=== PATIENT | male | born 1985 | race Caucasian/White ===

== ENCOUNTER 2018-05-12 16:27 | Inpatient (IN) | payer SELFPAY ==
[~2018-05-12] VITALS: Ht 193 cm; Wt 92.6 kg
[2018-05-12] MEDS ORDERED: SODIUM CHLORIDE 0.9% 1000ML 1,000 ML IV STA (16:42)
[2018-05-12 18:28] LABS: BASOPHILS % 0.4 % (0.0-1.0); EOSINOPHILS % 0.4 % (0.0-6.0); HEMATOCRIT 41.3 % (38.2-49.6); HEMOGLOBIN 14.7 g/dL (14.0-18.0); LYMPHOCYTES # (AUTO) 0.9 (1.0-3.2); LYMPHOCYTES % 11.8 % (18.0-39.1); MEAN CORPUSCULAR HEMOGLOBIN 31.6 pg (28-32); MEAN CORPUSCULAR HGB CONC 35.6 g/dL (31-35); MEAN CORPUSCULAR VOLUME 88.8 fL (81-99); MONOCYTES # (AUTO) 0.7 (0.2-0.8); MONOCYTES % 9.6 % (4.4-11.3); NEUTROPHILS % 76.9 % (38.7-80.0); PLATELET COUNT 192 x10e3/uL (140-360); RED BLOOD COUNT 4.65 x10e6/uL (4.3-5.7); RED CELL DISTRIBUTION WIDTH 12.2 % (11.7-14.4)
[2018-05-12 18:33] LABS: CLARITY,URINE CLEAR (CLEAR); COLOR,URINE YELLOW (YELLOW); LEUKOCYTE ESTERASE ,URINE NEGATIVE (NEGATIVE); NITRITE,URINE NEGATIVE (NEGATIVE)
[2018-05-12 18:34] LABS: BILIRUBIN,URINE NEGATIVE (NEGATIVE); KETONES,URINE NEGATIVE (NEGATIVE); PROTEIN,URINE DIPSTICK NEGATIVE (NEGATIVE); URINE UROBILINOGEN 0.2 mg/dL (0.2 - 1)
[2018-05-12 18:44] LABS: ALANINE AMINOTRANSFERASE 36 IU/L (0-55); ALBUMIN/GLOBULIN RATIO 0.8 (0.8-2.0); ALKALINE PHOSPHATASE 148 IU/L (40-150); ANION GAP 14.3 mmol/L (8-16); BLOOD UREA NITROGEN 8 mg/dL (7-26); BUN/CREATININE RATIO 6 (6-25); CARBON DIOXIDE 25 mmol/L (22-29); CHLORIDE 93 mmol/L (98-107); CREATININE, SERUM 1.31 mg/dL (0.72-1.25); EST GLOMERULAR FILTRATION RATE > 60 ML/MIN (60-); GLUCOSE 94 mg/dL (74-118); LIPASE 211 U/L (8-78); POTASSIUM 4.3 mmol/L (3.5-5.1); SODIUM 128 mmol/L (136-145)
[2018-05-12] MEDS ORDERED: ACETAMINOPHEN 1000 MG/100 ML IV STA (19:08)
[2018-05-12] MEDS ORDERED: DIATRIZOATE MEGL/DIATRIZOA SOD 30 ML BTL PO ONE (19:12)
[2018-05-12] MEDS ORDERED: ACETAMINOPHEN 325 MG TAB PO ONE (19:30)
[2018-05-12] MEDS ORDERED: MULTIVITAMINS- 12 INJECTION 10 ML, FOLIC ACID MDV 5 MG, THIAMINE HCL INJ 100 MG in SODI... IV ONE (19:45)
[2018-05-12] MEDS ORDERED: CEFTRIAXONE SOD 1 GM/NS 50 ML 50 ML IV ONE (19:45)
--- NOTE | 2018-05-12 21:38 | Diagnostic Imaging Report ---
EXAM: CT ABDOMEN/PELVIS W DATE: 05/12/2018 6:58 PM INDICATION: Abdominal pain COMPARISON: None TECHNIQUE: The abdomen and pelvis were scanned using a multidetector helical scanner. Coronal and sagittal reformations were obtained. CT low dose techniques were utilized, as applicable. IV Contrast: 100 ml Isovue 300/370 FINDINGS: LOWER THORAX: Trace effusions with bibasilar atelectasis. LIVER/BILIARY: Cirrhotic appearing liver with heterogeneous enhancement. No discrete mass. No ductal dilatation. GALLBLADDER: Contracted with trace pericholecystic fluid, nonspecific. SPLEEN: Splenomegaly. 17 cm craniocaudal dimension. PANCREAS: Unremarkable ADRENALS: No nodules KIDNEYS: No suspicious renal masses. No hydronephrosis. GI TRACT: No wall thickening or evidence of obstruction. Normal appendix. VESSELS: Central vessels are patent. Recanalized paraumbilical vein. PERITONEUM/RETROPERITONEUM: Mild free fluid is present. LYMPH NODES: Mildly enlarged deyanira hepatis nodes and prominent retroperitoneal nodes, presumably reactive. REPRODUCTIVE ORGANS/BLADDER: Unremarkable SOFT TISSUES: Fat-containing left inguinal hernia BONES: No suspicious bone lesions. IMPRESSION: Heterogeneous cirrhotic appearing liver with evidence of portal hypertension including splenomegaly and mild ascites. Signed by: Dr Kizzy Corey MD on 05/12/2018 9:35 PM
[2018-05-12] MEDS ORDERED: [UNRECOGNIZED DRUG - OTHER] PEG (22:35)
[2018-05-12] MEDS ORDERED: ZOFRAN4 MG PO (22:35)
[2018-05-12] MEDS ORDERED: FAMOTIDINE20 MG PO (22:35)
--- OUTSIDE RECORDS SUMMARY | 2018-05-12 22:42 | XMS REPORT ---
Author [facility] Address Unknown Phone Unavailable Care Team Providers Care Hospice/Home Health Aide Name Role Phone Tee PATEL Unavailable Unavailable Problems This patient has no known problems. Allergies, Adverse Reactions, Alerts This patient has no known allergies or adverse reactions. Medications This patient has no known medications. Results Test Description Test Time Test Comments Text Results Atomic Results Result Comments CT ABDOMEN/PELVIS W 2018-05-12 21:29:00 [place] [address] Patient Name: GLADIS CADENA MR #: [id number] : 1985 Age/Sex: 32/M Req #: [id number] Adm Physician: Ordered by: NI PATEL MD Report #: [id number] Location: ER Room/Bed: Procedure: [id number] CT/CT ABDOMEN/PELVIS W Exam Date: 05/12/18 Exam Time: 2033 REPORT STATUS: Signed EXAM: CT ABDOMEN/PELVIS W DATE: 05/12/2018 6:58 PM INDICATION: Abdominal pain COMPARISON: None TECHNIQUE: The abdomen and pelvis were scanned using a multidetector helical scanner. Coronal and sagittal reformations were obtained. CT low dose techniques were utilized, as applicable. IV Contrast: 100 ml Isovue 300/370 FINDINGS: LOWER THORAX: Trace effusions with bibasilar atelectasis. LIVER/BILIARY: Cirrhotic appearing liver with heterogeneous enhancement. No discrete mass. No ductal dilatation. GALLBLADDER: Contracted with trace pericholecystic fluid, nonspecific. SPLEEN: Splenomegaly. 17 cm craniocaudal dimension. PANCREAS: Unremarkable ADRENALS: No nodules KIDNEYS: No suspicious renal masses. No hydronephrosis. GI TRACT: No wall thickening or evidence of obstruction. Normal appendix. VESSELS: Central vessels are patent. Recanalized paraumbilical vein. PERITONEUM/RETROPERITONEUM: Mild free fluid is present. LYMPH NODES: Mildly enlarged deyanira hepatis nodes and prominent retroperitoneal nodes, presumably reactive. REPRODUCTIVE ORGANS/BLADDER: Unremarkable SOFT TISSUES: Fat-containing left inguinal hernia BONES: No suspicious bone lesions. IMPRESSION: Heterogeneous cirrhotic appearing liver with evidence of portal hypertension including splenomegaly and mild ascites. Signed by: Dr Eduarda Corey MD on 05/12/2018 9:35 PM Dictated By: EDUARDA COREY MD 34 Transcribed By: MORIS on 05/12/182134 COPY TO: NI PATEL MD
[2018-05-12] MEDS ORDERED: ONDANSETRON HCL INJ 2MG/ML 2ML 2 MG/ML VIAL IV PRN (22:45)
[2018-05-12] MEDS ORDERED: SODIUM CHLORIDE 0.9% 50ML 50 ML ONE (22:51)
[2018-05-12] MEDS ORDERED: IOPAMIDOL 370 MG/ML 200 ML INFUS..BTL INJ ONE (22:52)
[2018-05-12] MEDS ORDERED: IBUPROFEN 600 MG TAB PO ONE (23:30)
[2018-05-12] MEDS: CHLORDIAZEPOXIDE HCL 25 MG CAP PO SCH (23:45)
[2018-05-13] VITALS (9 sets, daily range): BP systolic 112–133; BP diastolic 71–81
[2018-05-13] MEDS: SODIUM CHLORIDE 0.9% 1000ML 1,000 ML IV SCH ×4 (02:19→20:25)
[2018-05-13 05:01] LABS: BASOPHILS % 0.4 % (0.0-1.0); EOSINOPHILS % 0.2 % (0.0-6.0); HEMATOCRIT 38.4 % (38.2-49.6); HEMOGLOBIN 13.4 g/dL (14.0-18.0); LYMPHOCYTES # (AUTO) 0.8 (1.0-3.2); LYMPHOCYTES % 8.3 % (18.0-39.1); MEAN CORPUSCULAR HEMOGLOBIN 31.1 pg (28-32); MEAN CORPUSCULAR HGB CONC 34.9 g/dL (31-35); MEAN CORPUSCULAR VOLUME 89.1 fL (81-99); MONOCYTES # (AUTO) 0.7 (0.2-0.8); NEUTROPHILS # (AUTO) 8.4 (2.1-6.9); NEUTROPHILS % 83.2 % (38.7-80.0); PLATELET COUNT 162 x10e3/uL (140-360); RED BLOOD COUNT 4.31 x10e6/uL (4.3-5.7); RED CELL DISTRIBUTION WIDTH 12.2 % (11.7-14.4)
[2018-05-13 05:27] LABS: ALANINE AMINOTRANSFERASE 30 IU/L (0-55); ALBUMIN 2.4 g/dL (3.5-5.0); ALBUMIN/GLOBULIN RATIO 0.8 (0.8-2.0); ALKALINE PHOSPHATASE 122 IU/L (40-150); AMYLASE 128 U/L (25-125); ANION GAP 12.9 mmol/L (8-16); BLOOD UREA NITROGEN 7 mg/dL (7-26); BUN/CREATININE RATIO 7 (6-25); CALCIUM 8.2 mg/dL (8.4-10.2); CARBON DIOXIDE 21 mmol/L (22-29); CHLORIDE 101 mmol/L (98-107); CREATININE, SERUM 1.07 mg/dL (0.72-1.25); EST GLOMERULAR FILTRATION RATE > 60 ML/MIN (60-); GLUCOSE 91 mg/dL (74-118); LIPASE 121 U/L (8-78); POTASSIUM 3.9 mmol/L (3.5-5.1); SODIUM 131 mmol/L (136-145)
[2018-05-13] MEDS: CHLORDIAZEPOXIDE HCL 25 MG CAP PO SCH ×3 (05:54→17:01)
[2018-05-13 08:12] LABS: BAND NEUTROPHILS % (MANUAL) 3 %; LYMPHOCYTES % (MANUAL) 8 % (19-48); METAMYELOCYTES % (MANUAL) 1 % (0-0); MONOCYTES % (MANUAL) 6 % (3.4-9.0); NEUTROPHILS % (MANUAL) 82 % (40-74); PLATELET ESTIMATE ADEQUATE; PLATELET MORPHOLOGY COMMENT FEW LARGE; RBC MORPHOLOGY COMMENT NORMAL
[2018-05-13 08:13] LABS: ANISOCYTOSIS SLIGHT; HYPOCHROMASIA MODERATE
[2018-05-13] MEDS: CIPROFLOXACIN 500 MG TAB PO SCH ×2 (09:37→21:13)
[2018-05-13] MEDS: THIAMINE HCL INJ 100 MG/ML 2ML VIAL IM NR ×2 (09:43→10:55)
--- NOTE | 2018-05-13 12:06 | History and Physical ---
Patient admitted through the emergency room. Unfortunate 32-year-old gentleman admitted with abdominal pain and diarrhea of 1 week's duration. Green, loose stool. Ate an old dinner which he bought at [employer]. No surgical history. FAMILY HISTORY: Noncontributory. SOCIAL HISTORY: dress fitter. Born in [place]. Smoked half a pack a day. Drinks 12 beers a day. Weight loss of 8 pounds since his illness began a week ago. Profuse diarrhea. REVIEW OF SYSTEMS: Otherwise noncontributory. PHYSICAL EXAMINATION VITAL SIGNS: Temperature 100.4, pulse 97, respirations 20, blood pressure 127/80. HEAD: Normocephalic, atraumatic. EYES: The extraocular movements are intact. LUNGS: Clear. HEART: Regular rhythm. ABDOMEN: Nontender. EXTREMITIES: Not edematous. CT reveals evidence of cirrhosis. IMPRESSION: Infectious diarrhea. Will begin quinolone therapy, IV fluids. Cigarette smoking cessation and alcohol cessation was discussed. Slightly elevated lipase. No evidence of clinical pancreatitis. Job#: [id number] MARIE
--- NOTE | 2018-05-13 12:14 | Diagnostic Imaging Report ---
EXAM: Right upper quadrant abdominal ultrasound INDICATION: Pancreatitis, abdominal pain. COMPARISON: CT Abdomen/Pelvis with contrast 05/12/2018. TECHNIQUE: Transverse and longitudinal images of the right upper quadrant abdomen were obtained FINDINGS: Liver: Size: 19.3 cm in the right midclavicular line. Appearance: Increased echogenicity with somewhat nodular contour. Somewhat geographic area of relatively hypoechoic liver centrally may represent an area of fatty sparing. Mass: No focal masses Gallbladder: No evidence of distention, pericholecystic fluid, wall thickening, stone, or reported sonographic River's sign. Gallbladder wall measures 0.3 cm Bile Ducts: Intrahepatic Ducts: No dilatation Extrahepatic Ducts: Common bile duct measures 0.4 cm, no dilatation Pancreas: Visualized portions of the pancreatic head, neck and proximal body are normal. Kidney: The right kidney measures 12.7 cm without evidence of hydronephrosis or stone. Vessels: Aorta: Visualized portions are normal Inferior Vena Cava: Visualized portions are normal Main Portal Vein: 1.4 cm, normal size with hepatopetal flow. Free Fluid: No evidence of ascites. IMPRESSION: Cirrhotic morphology to the liver. Hepatomegaly and hepatic steatosis. Somewhat geographic area of relatively hypoechoic liver centrally may represent an area of fatty sparing. No definite mass is visualized. No sonographic evidence of cholecystitis. Partially visualized pancreas appears unremarkable on ultrasound. Signed by: Dr. Davide Bass MD on 05/13/2018 12:11 PM
--- NOTE | 2018-05-13 13:44 | Consultation ---
DATE OF CONSULTATION: GASTROENTEROLOGY CONSULTATION REFERRING PHYSICIAN: Dr. Hayes REASON FOR CONSULTATION: Pancreatitis. HISTORY OF PRESENT ILLNESS: Mr. Hodges is a 32-year-old man with a history of alcohol abuse, who has no past medical history. Does not regularly see a doctor as an outpatient. He became ill last Thursday around 5 p.m. Associated with nausea, dry heaving and vomiting about 3 times. There was no hematemesis, coffee-ground emesis, melena, or hematochezia. He also got diarrhea at this time. He felt like he had some kind of virus or stomach flu. Pain is epigastric and central abdomen, nonradiating. Currently, very mild, but up to 4/10 previously. Worse with trying to eat anything, including soups. He had no sick contacts or identifiable food exposures. He drinks up to a 12-pack a day of tall boys, but had not recently increased his alcohol consumption. He was noted to have elevated amylase and lipase, and a CT scan is significant for heterogeneous cirrhotic appearing liver with portal hypertension, splenomegaly and mild ascites. The pancreas was unremarkable. PAST MEDICAL HISTORY: None. SURGICAL HISTORY: None. FAMILY HISTORY: No liver disease or other significant issues. REVIEW OF SYSTEMS: A 12-system review is positive for that mentioned in HPI, otherwise unremarkable. PHYSICAL EXAMINATION GENERAL: He is calm, alert, pleasant, and oriented. In no acute distress. HEENT: Pupils equal, round and reactive to light. NECK: Supple. LUNGS: Clear. CARDIOVASCULAR: S1 and S2. ABDOMEN: Soft. He is tender in the central and epigastric region. No regarding or mass. EXTREMITIES: No clubbing, cyanosis or edema. PSYCH: Calm and cooperative. NEUROLOGIC: Nonfocal. HEM/ONC: No bruising or adenopathy. Electronic health records reviewed for laboratory and radiologic studies, as well as history. ASSESSMENT 1. Acute pancreatitis, likely alcohol: Rule out biliary. There were no stones in his gallbladder on computerized tomography. However, will get ultrasound. 2. Portal hypertension. 3. Alcohol abuse. 4. Diarrhea: Could be from an acute gastroenteritis, which set him over the top. Could be related to malabsorption. At the current time, agree with stool culture. Will get an ultrasound to re-evaluate the gallbladder. He is more sensitive for cholelithiasis. Will avoid NSAIDs. He will need to avoid shellfish. He will need complete cessation of alcohol. He will need to follow up on an outpatient basis routinely at least every 6 months for screening for liver cancer. Discussed all of this with him. Will need to check him for viral hepatitis C and B, as well as for A. Thank you very much for asking us to see Mr. Hodges. Any questions or concerns please do not hesitate to contact me. Job#: [id number] ROMERO
[2018-05-13] MEDS: ACETAMINOPHEN 325 MG TAB PO PRN (15:53)
--- NOTE | 2018-05-13 20:31 | Diagnostic Imaging Report ---
EXAM: XR CHEST 2 VIEWS DATE: 05/13/2018 3:43 PM INDICATION: Fever COMPARISON: None FINDINGS: Lines and Tubes: None Heart and Mediastinum: No acute cardiomediastinal findings. Lungs and Pleura: Minimal opacities lung bases, most notably on the left. Bones and Soft Tissues: No acute findings. IMPRESSION: 1. Probable left lower lobe pneumonia. Signed by: Dr. Jonah Hair MD on 05/13/2018 8:27 PM
[2018-05-13] MEDS: CEFTRIAXONE SOD 1 GM/NS 50 ML 50 ML IV SCH (20:55)
[2018-05-14] MEDS: CHLORDIAZEPOXIDE HCL 25 MG CAP PO SCH ×4 (00:18→17:34)
[2018-05-14] MEDS: SODIUM CHLORIDE 0.9% 1000ML 1,000 ML IV SCH ×2 (05:08→13:51)
[2018-05-14 05:55] VITALS: BP 128/87
[2018-05-14 06:03] LABS: BASOPHILS % 0.4 % (0.0-1.0); EOSINOPHILS # (AUTO) 0.2 (0.0-0.4); EOSINOPHILS % 1.9 % (0.0-6.0); HEMATOCRIT 34.6 % (38.2-49.6); HEMOGLOBIN 12.5 g/dL (14.0-18.0); LYMPHOCYTES # (AUTO) 1.3 (1.0-3.2); LYMPHOCYTES % 15.8 % (18.0-39.1); MEAN CORPUSCULAR HEMOGLOBIN 31.3 pg (28-32); MEAN CORPUSCULAR HGB CONC 36.1 g/dL (31-35); MEAN CORPUSCULAR VOLUME 86.5 fL (81-99); MONOCYTES # (AUTO) 0.6 (0.2-0.8); MONOCYTES % 7.2 % (4.4-11.3); NEUTROPHILS # (AUTO) 5.9 (2.1-6.9); NEUTROPHILS % 73.2 % (38.7-80.0); PLATELET COUNT 195 x10e3/uL (140-360); RED CELL DISTRIBUTION WIDTH 12.5 % (11.7-14.4)
[2018-05-14 06:31] LABS: ANION GAP 13.1 mmol/L (8-16); BLOOD UREA NITROGEN 9 mg/dL (7-26); BUN/CREATININE RATIO 10 (6-25); CALCIUM 8.2 mg/dL (8.4-10.2); CARBON DIOXIDE 22 mmol/L (22-29); CHLORIDE 104 mmol/L (98-107); CREATININE, SERUM 0.92 mg/dL (0.72-1.25); EST GLOMERULAR FILTRATION RATE > 60 ML/MIN (60-); GLUCOSE 102 mg/dL (74-118); POTASSIUM 4.1 mmol/L (3.5-5.1); SODIUM 135 mmol/L (136-145)
[2018-05-14 08:17] VITALS: BP 120/84
[2018-05-14 08:30] VITALS: BP 120/84
[2018-05-14] MEDS ORDERED: DICYCLOMINE HCL 20 MG TAB PO PRN (12:00)
[2018-05-14 12:09] VITALS: BP 122/83
[2018-05-14] MEDS: LEVOFLOXACIN 500MG/D5W 100ML 100 ML IV SCH (13:51)
[2018-05-14 15:54] VITALS: BP 129/83
[2018-05-14 19:29] VITALS: BP 138/83
[2018-05-14] MEDS: CEFTRIAXONE SOD 1 GM/NS 50 ML 50 ML IV SCH (20:09)
[2018-05-15] VITALS (7 sets, daily range): BP systolic 132–148; BP diastolic 66–98
[2018-05-15] MEDS: ACETAMINOPHEN 325 MG TAB PO PRN (00:09)
[2018-05-15] MEDS: CHLORDIAZEPOXIDE HCL 25 MG CAP PO SCH ×3 (00:09→12:11)
[2018-05-15] MEDS: SODIUM CHLORIDE 0.9% 1000ML 1,000 ML IV SCH (02:15)
[2018-05-15 05:42] LABS: BASOPHILS % 0.3 % (0.0-1.0); EOSINOPHILS # (AUTO) 0.2 (0.0-0.4); EOSINOPHILS % 3.3 % (0.0-6.0); HEMATOCRIT 34.2 % (38.2-49.6); HEMOGLOBIN 12.5 g/dL (14.0-18.0); LYMPHOCYTES # (AUTO) 1.6 (1.0-3.2); LYMPHOCYTES % 22.5 % (18.0-39.1); MEAN CORPUSCULAR HEMOGLOBIN 32.5 pg (28-32); MEAN CORPUSCULAR HGB CONC 36.5 g/dL (31-35); MEAN CORPUSCULAR VOLUME 88.8 fL (81-99); MONOCYTES # (AUTO) 0.5 (0.2-0.8); MONOCYTES % 7.2 % (4.4-11.3); NEUTROPHILS # (AUTO) 4.5 (2.1-6.9); PLATELET COUNT 238 x10e3/uL (140-360); RED BLOOD COUNT 3.85 x10e6/uL (4.3-5.7); RED CELL DISTRIBUTION WIDTH 12.8 % (11.7-14.4)
[2018-05-15 05:59] LABS: ANION GAP 13.3 mmol/L (8-16); BLOOD UREA NITROGEN 9 mg/dL (7-26); BUN/CREATININE RATIO 9 (6-25); CALCIUM 8.5 mg/dL (8.4-10.2); CARBON DIOXIDE 23 mmol/L (22-29); CHLORIDE 104 mmol/L (98-107); CREATININE, SERUM 1.03 mg/dL (0.72-1.25); EST GLOMERULAR FILTRATION RATE > 60 ML/MIN (60-); GLUCOSE 91 mg/dL (74-118); POTASSIUM 4.3 mmol/L (3.5-5.1); SODIUM 136 mmol/L (136-145)
[2018-05-15 06:59] LABS: EOSINOPHILS % (MANUAL) 4 % (0-7); LYMPHOCYTES % (MANUAL) 23 % (19-48); MONOCYTES % (MANUAL) 4 % (3.4-9.0); NEUTROPHILS % (MANUAL) 66 % (40-74); RBC MORPHOLOGY COMMENT NORMAL
[2018-05-15 07:00] LABS: PLATELET ESTIMATE ADEQUATE; PLATELET MORPHOLOGY COMMENT NORMAL
[2018-05-15] MEDS ORDERED: THIAMINE HCL 100 MG TAB PO SCH (09:00)
[2018-05-15] MEDS: LEVOFLOXACIN 500MG/D5W 100ML 100 ML IV SCH (12:11)
[2018-05-15] MEDS ORDERED: LEVAQUIN500 MG PO (12:17)
--- NOTE | 2018-05-16 01:57 | Discharge Summary ---
FINAL DIAGNOSES: 1. Alcohol abuse. 2. Pneumonia. 3. Fever. 4. Mild pancreatitis. 5. Ultrasound of the abdomen showing cirrhotic morphology of the liver. ADMISSION HISTORY AND HOSPITAL COURSE: Mr. Hodges is a 32-year-old male who presented to the emergency room with abdominal pain. Patient also had some diarrhea. C. diff toxin was negative. When he came in, his lipase was 121. CT of the abdomen and pelvis was done, which showed heterogeneous cirrhotic appearing liver with evidence of portal hypertension including splenomegaly. He was started on IV antibiotics and IV fluids. Patient improved. Had fever of 101.8 which resolved with IV antibiotics. Chest x-ray was done which showed possible evidence of left lower lobe pneumonia. Patient is improved today, eating regular diet. He will be discharged home, to follow up with his primary care physician. DISCHARGE MEDICATIONS: List reviewed. SAMUEL SHOEMAKER MD Job#: [id number]
== END 2018-05-15 14:08 | disposition home or self-care (01) | DRG 438 ==
LOC: ER 16:27 → ERHOLD 22:39 → MED/SURG2 23:50
PROVIDERS: ADMIT Internal Medicine; ATTEND Internal Medicine
DX: K85.20 Alcohol induced acute pancreatitis without necrosis or infection (principal); J18.9 Pneumonia, unspecified organism; K76.6 Portal hypertension; F10.10 Alcohol abuse, uncomplicated; K70.30 Alcoholic cirrhosis of liver without ascites; R16.1 Splenomegaly, not elsewhere classified; Z87.891 Personal history of nicotine dependence; K52.9 Noninfective gastroenteritis and colitis, unspecified; Z28.21 Immunization not carried out because of patient refusal
CPT/HCPCS: 36415; 71046; 74177; 76705; 80048; 80053; 81001; 82105; 82150; 83690; 85025; 86706; 86708; 86803; 87040; 87045; 87071; 87086; 87205; 87340; 87493; 99284; J0696; J1956; J3411; J7030; Q9967